=== PATIENT | female | born 1970 | race African-American/Black ===

== ENCOUNTER 2016-12-07 21:48 | Emergency (ER) | payer MEDICAID ==
[~2016-12-07] VITALS: Ht 167.6 cm; Wt 75.7 kg
[2016-12-07 21:50] VITALS: BP 184/103
--- NOTE | 2016-12-07 22:03 | Emergency Room Report ---
History of Present Illness General Chief Complaint: Nosebleed Source: Patient, EMS Present Illness HPI 46-year-old female history of hypertension presenting with nosebleed. Patient states that she has had intermittent nose bleed from the right nare. This started out of nowhere. Denies any nose picking. Denies any cocaine use. Denies being on any aspirin or anticoagulation. No other complaints Allergies: Coded Allergies: No Known Allergies (Unverified , 12/07/16) Patient History Past Medical History: see triage record Past Surgical History: none Pertinent Family History: none Last Menstrual Period: nov 14 Now: No Reviewed Nursing Documentation: PMH: Agreed, PSxH: Agreed Nursing Documentation-PMH Hx Hypertension: Yes Physical Exam Vital Signs Date Time Temp Pulse Resp B/P (MAP) Pulse Ox O2 Delivery O2 Flow Rate FiO2 12/07/16 21:41 98.2 84 18 162/113 99 Room Air Medical Decision Making Diagnostic Impression: Primary Impression: Epistaxis ER Course 46-year-old female with right-sided epistaxis, not on blood thinners DDX: Likely anterior epistaxis. Plan: Home pressure, consider [employer] ER course: Patient has remained stable during ED stay. Patient held pressure, epistaxis resolved, and no further bleeding Disposition: Patient is to be discharged to home. Patient is instructed to follow up with their primary care doctor within 5 days. Strict return precautions discussed with patient such as fever, chills, worsening or persistent bleeding Please note that this Emergency Department Report was dictated using [facility] prep[facility] system operator technology software, occasionally this can lead to erroneous entry secondary to interpretation by the dictation equipment Last Vital Signs Date Time Temp Pulse Resp B/P (MAP) Pulse Ox O2 Delivery O2 Flow Rate FiO2 12/07/16 21:41 98.2 84 18 162/113 99 Room Air Disposition: HOME, SELF-CARE Condition: Improved Patient Instructions: Erich [id number] Cortez Cartagena M.D. Dec 07, 2016 22:03
[2016-12-07] MEDS ORDERED: NKM (22:27)
[2016-12-07 23:15] VITALS: BP 15/94
[2016-12-07 23:30] VITALS: BP 15/94
== END 2016-12-07 23:30 | disposition home or self-care (01) ==
LOC: EDBD 21:48 → EMR 22:00
DX: R04.0 Epistaxis (principal)
CPT/HCPCS: 99282